=== PATIENT | male | born 1950 | race Caucasian/White ===

== ENCOUNTER 2021-06-01 09:51 | Outpatient (CLI) | payer MEDICARE, SELFPAY ==
[2021-06-05 13:07] LABS: Apple 0.17 kU/L (Class 0/I); Barley, Whole Grain 0.34 kU/L (Class I); Beef 0.17 kU/L (Class 0/I); Chicken <0.10 kU/L (Class 0); Crab 2.19 kU/L (Class III); Egg, Whole <0.10 kU/L (Class 0); Egg, Yolk <0.10 kU/L (Class 0); Garlic 0.42 kU/L (Class I); Gluten 0.12 kU/L (Class 0/I); Lobster 0.55 kU/L (Class I); Oat 0.27 kU/L (Class 0/I); Onion 0.38 kU/L (Class I); Orange 0.25 kU/L (Class 0/I); Pea 0.12 kU/L (Class 0/I); Pork <0.10 kU/L (Class 0); Potato, White 0.41 kU/L (Class I); Rice 0.32 kU/L (Class I); Salmon <0.10 kU/L (Class 0); Strawberry 0.32 kU/L (Class I); Tuna <0.10 kU/L (Class 0); Yeast <0.10 kU/L (Class 0)
[2021-06-05 13:36] LABS: Tomato 0.37 kU/L (Class I); Turkey <0.10 kU/L (Class 0)
== END 2021-06-01 23:59 | disposition home or self-care (01) ==
PROVIDERS: PCP Family Medicine; Referring Provider Otolaryngology Otolaryngology/Facial Plastic Surgery; Visit Provider Otolaryngology Otolaryngology/Facial Plastic Surgery
DX: T78.40XA Allergy, unspecified, initial encounter (principal)
CPT/HCPCS: 86003

== ENCOUNTER → 2023-02-16 | Outpatient (CLI) | payer MEDICARE, SELFPAY ==
[2023-02-16 11:53] LABS: BNP,B-Type NATRIURETIC PEPTIDE 22.7 pg/mL (0-100)
[2023-02-16 11:55] LABS: Troponin-I HS 6 pg/mL (3.0-78.0)
== END | disposition home or self-care (01) ==
PROVIDERS: PCP Family Medicine; Referring Provider Nurse Practitioner Family; Visit Provider Nurse Practitioner Family
DX: R06.02 Shortness of breath (principal)
CPT/HCPCS: 83880; 84484

== ENCOUNTER → 2024-03-27 | Outpatient (CLI) | payer MEDICARE, SELFPAY ==
[2024-03-27 16:48] LABS: Absolute Lymphocyte Count 1.36 X10^3/uL (0.83-4.51); Absolute Neutrophil Count 4.1 X10^3/uL (2.0-7.7); Basophil# 0.06 X10^3/uL; Basophil% 0.9 % (0-1); Eosinophil# 0.26 X10^3/uL; Hematocrit 44.3 % (40-54); Hemoglobin 14.8 g/dL (13.0-16.5); Lymphocyte # 1.36 X10^3/ul (0.83-4.51); Lymphocyte % 20.8 % (19-41); Mean Corp Hgb Conc 33.4 g/dL (32-36); Mean Corpuscular Volume 92.7 fL (80-94); Mean Platelet Vol. 10.3 fl (6.2-12.0); Monocyte# 0.71 X10^3/uL; Monocyte% 10.9 % (0-10); NRBC Flagged by Analyzer 0 % (0-5); Neutrophil # 4.13 X10^3/uL (2.7-7.7); Neutrophil % 63.2 % (47-70); Platelet Count 235 K/mm3 (150-450); RBC Distribution Width CV 12.5 % (11.6-14.6); RBC Distribution Width SD 42.6 fl (35.1-43.9); Red Blood Count 4.78 M/mm3 (4.6-6.2); White Blood Count 6.5 K/mm3 (4.4-11.0)
[2024-03-27 17:31] LABS: ALB/GLOB Ratio 1.1 RATIO (0.9-2.4); AST(SGOT) 19 U/L (15-37); Alanine Aminotransfer ALT/SGPT 24 U/L (16-61); Alkaline Phosphatase 82 U/L (45-117); Anion Gap 3 (5-15); BUN 16 mg/dL (7-18); BUN/Creat Ratio 13.6 RATIO (10-20); Calcium,Total 9.2 mg/dL (8.5-10.1); Chloride 106 mmol/L (98-107); Cholesterol 241 mg/dL (200); Creatinine, Serum 1.18 mg/dL (0.70-1.30); EST Glomerular Filtration Rate 65 mL/min (>60); Est Glom Filt Rate - Afr Amer 78 mL/min (>60); Globulin 3.8 g/dL (2.2-4.2); Glucose 90 mg/dL (74-106); High Density Lipoprotein 44 mg/dL; PSA,Total - Annual Screen 2.65 ng/mL (0.00-4.00); Potassium 3.8 mmol/L (3.5-5.1); Protein, Total 7.8 g/dL (6.4-8.2); Sodium Level 137 mmol/L (136-145); Triglycerides 159 mg/dL; Very Low Density Lipoprotein 32 mg/dL (5-40)
[2024-03-27 17:57] LABS: Hepatitis C Antibody Non-Reactive (Nonreactive); Vitamin D,25 Hydroxy 27.4 ng/mL
== END | disposition home or self-care (01) ==
LOC: CT 16:28
PROVIDERS: PCP Family Medicine; Referring Provider Family Medicine Geriatric Medicine; Visit Provider Family Medicine Geriatric Medicine
DX: Z12.5 Encounter for screening for malignant neoplasm of prostate (principal); E78.5 Hyperlipidemia, unspecified; I10 Essential (primary) hypertension; Z13.89 Encounter for screening for other disorder; E55.9 Vitamin D deficiency, unspecified
CPT/HCPCS: 36415; 80053; 80061; 82306; 84153; 84443; 85025; 86803; G0103

== ENCOUNTER → 2024-03-28 | Outpatient (CLI) | payer MEDICARE, SELFPAY ==
--- NOTE | 2024-03-28 11:49 | CT_ITS ---
STUDY: CT BRAIN WITHOUT CONTRAST REASON FOR EXAM: Male, 73 years old. CLOSED HEAD INJURY RADIATION DOSAGE (If Supplied By Facility): CTDIvol = ( 44.99 ) mGy, DLP = ( 846.73 ) mGycm TECHNIQUE: Transaxial CT imaging of the brain was performed without administration of intravenous contrast material. Individualized dose optimization techniques were used for this CT. COMPARISON: No relevant priors. FINDINGS: Normal soft tissue structures. Normal calvarium. There is mild cerebral atrophy with widening of the extra-axial spaces and ventricular dilatation. Normal white matter tracts of the cerebral hemispheres. Normal basal ganglia and thalami. Normal brainstem. Normal cerebellum. There is no intracranial hemorrhage. There are no findings of an acute ischemic infarction. Mucosal thickening of the ethmoid sinuses. CT/Brain/Head without Contrast IMPRESSION: Chronic involutional changes of the brain. Electronically Signed: Adalberto Godfrey MD at 14:56 EST ,
--- NOTE | 2024-03-28 11:49 | CT_ITS ---
STUDY: CT ABDOMEN AND PELVIS WITH CONTRAST REASON FOR EXAM: Male, 73 years old. Right lower quadrant pain. RADIATION DOSAGE (If Supplied By Facility): CTDIvol = ( 16.79 ) mGy, DLP = ( 1182.97 ) mGycm TECHNIQUE: Transaxial images were obtained from the dome of the diaphragm to the symphysis pubis with oral contrast. Oral and amp; IV Gastrografin and amp; 100mL Isovue-300 was administered. Sagittal and coronal images were reconstructed. Individualized dose optimization techniques were used for this CT. COMPARISON: None. FINDINGS: The visualized lung bases are unremarkable. Coronary artery calcification. There is decreased attenuation of the liver consistent with steatosis. Normal gallbladder and extrahepatic biliary system. Normal spleen. Normal pancreas. Normal bilateral adrenal glands. 1.8 cm cyst in the midportion of the right kidney. Normal left kidney. There is a small hiatal hernia. Normal small intestine. Normal colon. The appendix is visualized and appears normal. There is scattered atherosclerotic calcification of the abdominal aorta, without a demonstrated aneurysm. Normal inferior vena cava. Normal retroperitoneum. Diffuse bladder wall thickening. Prostatic enlargement with indentation of the bladder base. The prostate measures 4.7 cm x 4.1 cm. Small bilateral inguinal hernias containing fat. There are mild degenerative changes of the visualized lumbar spine. CT/Abdomen/Pelvis WITH Contrast IMPRESSION: Fatty infiltration of the liver. Small right renal cyst. Prostatic enlargement with indentation of the bladder base. Diffuse bladder wall thickening. Electronically Signed: Adalberto Godfrey MD at 15:01 EST ,
== END | disposition home or self-care (01) ==
LOC: CT 11:48
PROVIDERS: PCP Family Medicine Geriatric Medicine; Referring Provider Family Medicine Geriatric Medicine; Visit Provider Family Medicine Geriatric Medicine
DX: S09.90XA Unspecified injury of head, initial encounter (principal); I71.40 Abdominal aortic aneurysm, without rupture, unspecified; R51.9 Headache, unspecified; R10.9 Unspecified abdominal pain; X58.XXXA Exposure to other specified factors, initial encounter
CPT/HCPCS: 70450; 74177; Q9967

== ENCOUNTER → 2024-04-15 | Outpatient (CLI) | payer MEDICARE, SELFPAY ==
--- NOTE | 2024-04-15 07:02 | US_ITS ---
STUDY: ABDOMINAL ULTRASOUND - RIGHT UPPER QUADRANT; ELASTOGRAPHY REASON FOR VISIT: Male, 73 years old. Fatty infiltration of the liver. TECHNIQUE: Ultrasound evaluation of the right upper quadrant was performed with real-time and static gandhi-scale imaging. Point quantification shear wave elastography was performed (Zurff). TECHNICAL QUALITY: Adequate. COMPARISON: Comparison is made with prior CT scan the abdomen and pelvis dated March 28, 2024. FINDINGS: Liver: The liver measures 14.9 cm. There is increased echogenicity consistent with fatty infiltration. The bile ducts are within normal limits. There is hepatic color flow. The direction of portal flow is hepatopetal. There is no demonstrated mass lesion. Median liver stiffness measured 7.3 kPa. Gallbladder: Normal distended gallbladder. The gallbladder wall measures 4 mm. There is a negative sonographic [place]''s sign. There is no pericholecystic fluid. There are no gallstones. Common Bile Duct (C.B.D.): The common bile duct measures 5 mm. Pancreas: There is normal echogenicity of the visualized pancreas. There is no demonstrated pancreatic mass or cyst. Right Kidney: Normal size of the right kidney. The right kidney measures 9.6 cm x 5.3 cm x 4.4 cm. Normal renal cortex. The right cortex measures 1.3 cm. There is a 1.7 cm x 1.8 cm x 2 cm cyst in the midportion of the right kidney. There is no right hydronephrosis. US/ABD Limited w/ Elastography IMPRESSION: 1. Liver stiffness measures 7.3 kPa compatible with F2-F3 (Mild to moderate liver fibrosis) Metavir score. Electronically Signed: Adalberto Godfrey MD at 14:55 EST ,
== END | disposition home or self-care (01) ==
LOC: US 07:00
PROVIDERS: PCP Family Medicine Geriatric Medicine; Referring Provider Family Medicine Geriatric Medicine; Visit Provider Family Medicine Geriatric Medicine
DX: K76.0 Fatty (change of) liver, not elsewhere classified (principal)
CPT/HCPCS: 76705; 76981

== ENCOUNTER → 2024-06-23 | Outpatient (CLI) | payer MEDICARE, SELFPAY ==
--- NOTE | 2024-06-23 13:15 | MRI_ITS ---
PROCEDURE: BRAIN WITHOUT CONTRAST REASON FOR EXAM: NEURALGIA TECHNIQUE: Multiplanar, multisequence MRI brain performed without contrast COMPARISON: 01/2024 FINDINGS: Mild global volume loss and chronic small-vessel ischemic change. No restricted diffusion. Unremarkable pituitary region and craniocervical junction. Temporal lobes are symmetric. No hydrocephalus. 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 MRI/Brain without Contrast IMPRESSION: Senescent changes. No evidence of acute intracranial abnormality. Specificall y no evidence of acute infarct. Reading Location: [id number]
--- NOTE | 2024-06-23 14:00 | MRI_ITS ---
PROCEDURE: Noncontrast MRI of the cervical spine. REASON FOR EXAM: Neuralgia. History of fall 3 months ago, with head injury. Headaches and light headedness since fall. TECHNIQUE: Multiplanar, multisequence MRI images of the cervical spine were obtained without IV contrast. COMPARISON: None. FINDINGS: The included portions of the skull base and craniocervical junction are intact. Cervical vertebral bodies are normal in height, alignment, and marrow signal. No acute fracture, focal subluxation, or abnormal marrow replacement process. The cervical spinal cord is normal in signal and caliber. Included cervical soft tissues show no specific abnormality. C2-3: No focal disc herniation or, significant central spinal canal, or right neural foraminal narrowing. Moderate left neural foraminal narrowing. C3-4: Lobulated posterior disc osteophyte complex causes moderate central spinal canal narrowing. No focal disc herniation. Moderate right and severe left neural foraminal narrowing. C4-5: Lobulated posterior disc osteophyte complex causes mild central spinal canal narrowing. No focal disc herniation. No significant left neural foraminal narrowing. Mild to moderate right neural foraminal narrowing. C5-6: Posterior disc osteophyte complex causes moderate central spinal canal narrowing. No focal disc herniation. Severe bilateral neural foraminal narrowing. C6-7: Mild disc bulge flattens the ventral thecal sac, without focal disc herniation or significant central spinal canal narrowing. No significant neural foraminal narrowing. C7-T1: No focal disc herniation, significant central spinal canal, or left neural foraminal narrowing. Mild right neural foraminal narrowing. MRI/Spine Cervical (Routine) IMPRESSION: No acute bony abnormality of the cervical spine. No focal signal abnormality or volume loss of the cervical spinal cord. Multilevel degenerative disc and facet disease in the cervical spine as describ ed level by level above. Moderate central spinal canal narrowing at C3-4 and C5-6, to a mild degree at C4-5. Multilevel neural foraminal narrowing as described level by level above, to a s evere degree bilaterally at C5-6. Reading [id number]
== END | disposition home or self-care (01) ==
PROVIDERS: PCP Family Medicine Geriatric Medicine; Referring Provider Family Medicine Geriatric Medicine; Visit Provider Family Medicine Geriatric Medicine
DX: M79.2 Neuralgia and neuritis, unspecified (principal)
CPT/HCPCS: 70551; 72141